=== PATIENT | male | born 1945 | race Two or more races ===

== ENCOUNTER 2017-07-28 11:42 | Inpatient (IN) | payer BC, MEDICARE ==
[~2017-07-28] VITALS: Ht 180.3 cm; Wt 84.8 kg
[2017-07-28] VITALS (20 sets, daily range): BP systolic 53–185; BP diastolic 41–103
--- NOTE | 2017-07-28 11:42 | NUR ---
BIBRA FROM SNF DT ALTERED MENTAL STATUS AND RESPIRATORY DISTRESS. PATIENT REFEIVED IN DISTRESS, SATING 80% ON NON REBREATHER, NOTED TACHY ON TELE MONITOR, NON RESPONSIVE. MD PFEIFFER AT BEDSIDE FOR EVAL
--- NOTE | 2017-07-28 11:47 | NUR ---
INTUBATED BY MD PFEIFFER - 7.5F, 25 CM AT THE LIP. RT CONNECTED PT TO VENT
[2017-07-28] MEDS ORDERED: PROPOFOL 100 ML IV PRN (12:00)
[2017-07-28] MEDS ORDERED: IV NS 0.9% 1,000 ML BAG IV ONE ×2 (12:00→13:00)
[2017-07-28] MEDS ORDERED: ETOMIDATE 2 MG/ML VIAL IV ONE (12:00)
[2017-07-28] MEDS ORDERED: SUCCINYLCHOLINE CHLORIDE 20 MG/ML VIAL IV ONE (12:00)
--- NOTE | 2017-07-28 12:00 | NUR ---
RT INTUBATED PT WITH 7.5 ETT AT 24CM GUM LINE BILATERAL CHEST RISE CO2 COLOR CHANGE. VENT SETTING ORDERED PER DR MORA AC 550 16 +5 100% O2. ABG DRAW AFTER AN HOUR Addendum: 07/28/17 at 1259 by CHAYA KRAMER RT Amended: Links added.
--- NOTE | 2017-07-28 12:08 | NUR ---
TEST DEVELOPMENT ENGINEER AT BS
[2017-07-28] MEDS ORDERED: FENTANYL PF 100MCG/2ML AMPUL ONE (12:20)
[2017-07-28] MEDS ORDERED: INSU100I14 SQ (12:22)
[2017-07-28] MEDS ORDERED: LACO200T2 PO (12:22)
[2017-07-28] MEDS ORDERED: ENOX40DI SQ (12:22)
[2017-07-28] MEDS ORDERED: DOCU-141 PO (12:22)
[2017-07-28] MEDS ORDERED: NYST50002 PO (12:22)
[2017-07-28] MEDS ORDERED: PHEN125O9 PO (12:22)
[2017-07-28] MEDS ORDERED: ZINC220T PO (12:22)
[2017-07-28] MEDS ORDERED: MULT-213 PO (12:22)
[2017-07-28] MEDS ORDERED: PROP60TA18 PO (12:22)
[2017-07-28] MEDS ORDERED: FURO-144 PO (12:22)
[2017-07-28] MEDS ORDERED: LEVE1000 PO (12:22)
[2017-07-28] MEDS ORDERED: SENN8.8S11 GT (12:22)
[2017-07-28] MEDS ORDERED: FENTANYL CITRATE IV 1,250 MCG in IV NS 0.9% 250ML IV PRN (12:30)
[2017-07-28 12:31] LABS: BASOPHILS # (AUTO) 0.2 /CMM (0.0-0.2); BASOPHILS % (AUTO) 1.5 % (0.0-2.0); EOSINOPHILS % (AUTO) 0.3 % (0.0-6.0); HEMATOCRIT 37 % (39-51); HEMOGLOBIN 12.6 g/dL (13.5-17.5); LYMPHOCYTES # (AUTO) 1.1 /CMM (0.8-4.8); LYMPHOCYTES % (AUTO) 7.4 % (20.0-44.0); MEAN CORPUSCULAR HEMOGLOBIN 32 PG (26.0-33.0); MEAN CORPUSCULAR HGB CONC 34 g/dl (31.0-36.0); MEAN CORPUSCULAR VOLUME 93 fL (80-96); MONOCYTES # (AUTO) 0.8 /CMM (0.1-1.30); MONOCYTES % (AUTO) 5.5 % (2.0-12.0); NEUTROPHILS % (AUTO) 85.3 % (43.0-81.0); PLATELET COUNT (AUTO) 162 /CMM (150-450); RDW COEFFICIENT OF VARIATION 14.4 (11.5-15.0); RED BLOOD CELL COUNT(AUTO) 3.94 MIL/uL (4.5-6.0); WHITE BLOOD COUNT (AUTO) 15.1 K/uL (4.3-11.0)
[2017-07-28 12:32] LABS: APPEARANCE,URINE Slightly Cloudy (CLEAR); BILIRUBIN,URINE Negative (NEGATIVE); BLOOD, URINE Large Ery/uL (NEGATIVE); COLOR,URINE Orange (YELLOW); KETONES,URINE Negative (NEGATIVE); LEUKOCYTE ESTERASE ,URINE Negative (NEGATIVE); NITRITE, URINE Negative (NEGATIVE); PH,URINE 5.5 (5.0-8.0); PROTEIN,URINE 30 mg/dl (NEGATIVE); UGLUCOSE Negative (NEGATIVE); UROBILINOGEN,URINE 0.2 EU/dL (0.2)
[2017-07-28 12:42] LABS: BACTERIA,URINE Rare /HPF (None Seen); RBC,URINE 51-80 /HPF (0-2); SQUAMOUS EPITHELIAL CELL,UR Few /HPF (None Seen); WBC,URINE 0-2 /HPF (0-3)
[2017-07-28 12:43] LABS: YEAST,URINE Few /HPF (None Seen)
[2017-07-28 12:45] LABS: INR 1.06 (0.87-1.13)
[2017-07-28 12:46] LABS: ALANINE AMINOTRANSFERASE 69 U/L (12-78); ALBUMIN 2.5 g/dL (3.4-5.0); ALKALINE PHOSPHATASE 128 U/L (46-116); ASPARTATE AMINOTRANSFERASE 33 U/L (15-37); BILIRUBIN,DIRECT 0.2 mg/dL (0.0-0.2); BILIRUBIN,TOTAL 0.6 mg/dL (0.2-1.0); CALCIUM, SERUM 8.8 mg/dL (8.5-10.1); CARBON DIOXIDE 20 mmol/L (21-32); CHLORIDE 103 mmol/L (98-107); GLUCOSE 140 mg/dL (74-106); SODIUM SERUM 137 mmol/L (136-145); TOTAL PROTEIN, SERUM 6.4 g/dL (6.4-8.2)
[2017-07-28 12:47] LABS: TROPONIN I < 0.017 ng/mL (0.00-0.056)
[2017-07-28 12:50] LABS: CREATININE 8.3 mg/dL (0.6-1.3); POTASSIUM 6.6 mmol/L (3.5-5.1); UREA NITROGEN, BLOOD 88 mg/dL (7-18)
[2017-07-28] MEDS ORDERED: MIDAZOLAM HCL 100 MG in IV NS 0.9% 80 ML IV PRN ×4 (13:00)
--- NOTE | 2017-07-28 13:19 | NUR ---
ICU 250
[2017-07-28] MEDS ORDERED: FENTANYL PF 100MCG/2ML AMPUL IV ONE (13:30)
--- NOTE | 2017-07-28 13:43 | NUR ---
DISCONTINUED PROPOFOL
--- NOTE | 2017-07-28 13:43 | NUR ---
abg done after 1 hr on 40% 02 VENT CHANGES TO AC 600 18R 50% 02 +[address] MORA Addendum: 07/28/17 at 1345 by CHAYA KRAMER RT Amended: Links added.
[2017-07-28 13:53] LABS: ABG BASE EXCESS -7.1 mmol/L; ABG OXYGEN SATURATION 94.3 % (92.0-98.5); ABG PCO2 55.6 mmHg (35.0-45.0); ABG PH 7.203 (7.350-7.450); ABG PO2 87.6 mmHg (75.0-100.0); AaDO2 133.7 mmHg; COHb 0.4 % (0.5-1.5); MetHb 0.7 % (0.0-1.5); O2Hb 93.3 % (94.0-97.0); PEEP,BG 5 cm H2O; SITE, ABG Right Radial; VENT MODE, BG AC 40%; VT, ABG 550 mL
[2017-07-28] MEDS ORDERED: Calcium Gluconate 1GM/10ML 9.3 MEQ in IV D5W 250 ML IV ONE (14:00)
[2017-07-28] MEDS ORDERED: PIPERACILLIN /TAZOBACTAM 3.375 G in IV D5W 50 ML IV STA (14:01)
[2017-07-28] MEDS ORDERED: PIPERACILLIN /TAZOBACTAM 3.375 G VIAL IV ONE (14:07)
[2017-07-28] MEDS ORDERED: NORMAL SALINE FLUSH 10 ML SYR IV PRN (14:30)
[2017-07-28] MEDS ORDERED: ACETAMINOPHEN 650 MG/SUPP.RECT RC PRN (14:30)
[2017-07-28] MEDS ORDERED: NORMAL SALINE FLUSH 10 ML SYR IV SCH (14:30)
[2017-07-28] MEDS ORDERED: ONDANSETRON HCL/PF 4 MG/2 ML VIAL IVP PRN (14:30)
[2017-07-28 14:31] LABS: CALCIUM, SERUM 9.2 mg/dL (8.5-10.1); CARBON DIOXIDE 23 mmol/L (21-32); CHLORIDE 103 mmol/L (98-107); GLUCOSE 147 mg/dL (74-106); POTASSIUM 5.9 mmol/L (3.5-5.1); SODIUM SERUM 139 mmol/L (136-145)
[2017-07-28 14:33] LABS: CREATININE 7.6 mg/dL (0.6-1.3); UREA NITROGEN, BLOOD 89 mg/dL (7-18)
--- NOTE | 2017-07-28 15:08 | NUR ---
PATIENT TRANSPORTED TO ICU. VSS
[2017-07-28] MEDS: PANTOPRAZOLE 40 MG VIAL IV SCH (15:44)
[2017-07-28] MEDS: LEVETIRACETAM (500MG) 500 MG in IV NS 0.9% 100 ML IV SCH (15:45)
[2017-07-28] MEDS ORDERED: [UNRECOGNIZED DRUG - OTHER] PO SCH (17:00)
[2017-07-28] MEDS: PROPRANOLOL HCL 10 MG TABLET PO SCH (17:15)
[2017-07-28] MEDS: DEXAMETHASONE SOD PHOSPHATE 4 MG/ML VIAL IV SCH (17:15)
--- NOTE | 2017-07-28 17:28 | NUR ---
SLASHER TENDER HELPER. ADMISSION. RECEIVED THE PT FROM ER VIA [facility] ROOM 250. ADMITTING DIAGNOSIS IS RESPIRATORY FAILURE . ORALLY INTUBATED. VERSED DRIP STARTED FROM ER. IV LT AC 20G. RT HAND AC 18G. INFILTRATED. . FROM ER. ETT 7.5,LIP 25,AC 18,TV 600,FIO2 50%PEEP 5. SAT 98%. NO ACUTE DISTRESS NOTED. RETAIL PRESENTATION SPECIALIST SHOWING NSR. RT NARE NGT INTACT. CLAMPED NPO. EXPECTS MEDS. DEX SOFT WRIST RESTRAINT CHECKED AND RELEASED NO INJURY OR REDNESS NOTED.FC PATENT, URINE DRAINING, WILL CONTINUE TO MONITOR VITALS.
[2017-07-28] MEDS: PHENYTOIN SUSP UDC 100 MG/4 ML UDC PO SCH ×2 (18:36→21:02)
[2017-07-28] MEDS: IPRATROPIUM NEB FS 0.5 MG/2.5 ML AMPUL.NEB NEB SCH ×2 (19:30→21:04)
--- NOTE | 2017-07-28 20:00 | NUR ---
HAND PACKER/PACKAGER - NOTES - RECEIVED THE PT ORALLY INTUBATED. VERSED DRIP 2 MG/HR. IV LT AC 20G. ETT 7.5, 25 @ LIP, AC 18,TV 600, FIO2 50%, PEEP 5. SAT 99%. NO ACUTE DISTRESS NOTED. BARK SKINNER SHOWING NSR. RT NARE NGT INTACT. CLAMPED NPO. EXPECTS MEDS. DEX SOFT WRIST RESTRAINT CHECKED AND RELEASED NO INJURY OR REDNESS NOTED. FC PATENT, URINE DRAINING, WILL CONTINUE TO MONITOR VITALS.
[2017-07-28] MEDS: NYSTATIN (PYXIS) 500,000 UNIT/5 ML ORAL.SUSP PO SCH (21:02)
[2017-07-28] MEDS: ALBUTEROL HALF STRENGTH 1.25 MG/3 ML VIAL.NEB NEB SCH (21:04)
[2017-07-28] MEDS ORDERED: IV NS 0.9% 250 ML IV PRN (21:30)
--- NOTE | 2017-07-28 22:00 | NUR ---
PT RECEIVED ON VENT VIA CHARTED SETTINGS AND ROUTE. TOLERATING VENT SETTINGS. AMBU BAG AT BEDSIDE, ALARMS SET AND AUDIBLE. VENT PLUGGED INTO RED OUTLET. NO RESP DISTRESS NOTED. WILL CONTINUE TO MONITOR Addendum: 07/28/17 at 2200 by IVETTE GAGE RT Amended: Links added.
[2017-07-29] VITALS (62 sets, daily range): BP systolic 71–208; BP diastolic 42–91
[2017-07-29] MEDS: IPRATROPIUM NEB FS 0.5 MG/2.5 ML AMPUL.NEB NEB SCH ×7 (00:15→23:17)
[2017-07-29] MEDS: ALBUTEROL HALF STRENGTH 1.25 MG/3 ML VIAL.NEB NEB SCH ×7 (00:15→23:17)
[2017-07-29] MEDS: LEVETIRACETAM (500MG) 500 MG in IV NS 0.9% 100 ML IV SCH ×2 (02:36→15:20)
[2017-07-29] MEDS: PHENYTOIN SUSP UDC 100 MG/4 ML UDC PO SCH ×3 (04:35→21:25)
[2017-07-29 05:33] LABS: BASOPHILS % (AUTO) 0.1 % (0.0-2.0); EOSINOPHILS % (AUTO) 0.2 % (0.0-6.0); HEMATOCRIT 33 % (39-51); HEMOGLOBIN 11.7 g/dL (13.5-17.5); LYMPHOCYTES # (AUTO) 0.9 /CMM (0.8-4.8); LYMPHOCYTES % (AUTO) 7.7 % (20.0-44.0); MEAN CORPUSCULAR HEMOGLOBIN 33 PG (26.0-33.0); MEAN CORPUSCULAR HGB CONC 36 g/dl (31.0-36.0); MEAN CORPUSCULAR VOLUME 92 fL (80-96); MONOCYTES # (AUTO) 0.6 /CMM (0.1-1.30); MONOCYTES % (AUTO) 4.5 % (2.0-12.0); NEUTROPHILS # (AUTO) 10.7 /CMM (1.8-8.9); NEUTROPHILS % (AUTO) 87.5 % (43.0-81.0); PLATELET COUNT (AUTO) 107 /CMM (150-450); RDW COEFFICIENT OF VARIATION 14.3 (11.5-15.0); RED BLOOD CELL COUNT(AUTO) 3.55 MIL/uL (4.5-6.0); WHITE BLOOD COUNT (AUTO) 12.2 K/uL (4.3-11.0)
[2017-07-29 06:01] LABS: INR 1.07 (0.87-1.13); PROTHROMBIN TIME 11.1 SECS (9.5-12.7)
[2017-07-29 06:06] LABS: ALANINE AMINOTRANSFERASE 57 U/L (12-78); ALBUMIN 2.3 g/dL (3.4-5.0); ALKALINE PHOSPHATASE 121 U/L (46-116); ASPARTATE AMINOTRANSFERASE 22 U/L (15-37); BILIRUBIN,TOTAL 1.3 mg/dL (0.2-1.0); CALCIUM, SERUM 9.2 mg/dL (8.5-10.1); CARBON DIOXIDE 25 mmol/L (21-32); CHLORIDE 111 mmol/L (98-107); CREATININE 3.6 mg/dL (0.6-1.3); GLUCOSE 120 mg/dL (74-106); MAGNESIUM 2.3 mg/dL (1.8-2.4); PHOSPHORUS 6.1 mg/dL (2.5-4.9); POTASSIUM 4.5 mmol/L (3.5-5.1); SODIUM SERUM 150 mmol/L (136-145); TOTAL PROTEIN, SERUM 6.1 g/dL (6.4-8.2); UREA NITROGEN, BLOOD 73 mg/dL (7-18)
--- NOTE | 2017-07-29 07:36 | NUR ---
OPERATIONS LOGISTICS ANALYST RECEIVED PATIENT FROM THE PREVIOUS SHIFT. PATIENT IS IN BED. SEDATED ON VERSED DRIP. NO ACUTE DISTRESS NOTED. VENT SETTINGS REVIEWED AND VERIFIED. AFEBRILE. STABLE VITAL SINGS. TURNED AND REPOSITIONED FOR COMFORT AND WOUND PREVENTION. WILL CONTINUE TO MONITOR AND PROVIDE CARE.
--- NOTE | 2017-07-29 08:17 | NUR ---
CROWN AND BRIDGE DENTAL LAB TECHNICIAN DURING SEDATION VACATION, RN HELD THE VERSED DRIP. PATIENT NOTED TO WAKE UP. PATIENT IS ABLE TO FOLLOW COMMANDS. ABLE TO INTERACT. PATIENT WAS RESTARTED ON VERSED DRIP FOR COMFORT AND DUE TO TACHYPNEA.
[2017-07-29] MEDS ORDERED: SENNOSIDES 8.8 MG/5 ML UDC GT SCH (09:00)
[2017-07-29] MEDS ORDERED: DC PROPOFOL WHEN EXTUBATED XX PRN ×2 (09:00→10:00)
--- NOTE | 2017-07-29 09:04 | NUR ---
RT NOTE PT PLACED ON SIMV MODE PER MD ORDER. SETTINGS PRESCRIBED SIMV RR 4 PEEP 5 PSV 15. PT AWAKE AND ALERT. NO DISTRESS NOTED. RN NOTIFIED. Addendum: 07/29/17 at 0906 by LENIN MACEDO RT Amended: Links added.
[2017-07-29] MEDS: DEXAMETHASONE SOD PHOSPHATE 4 MG/ML VIAL IV SCH ×2 (09:12→17:30)
[2017-07-29] MEDS: PANTOPRAZOLE 40 MG VIAL IV SCH (09:12)
[2017-07-29] MEDS: ZINC SULFATE 220 MG CAPSULE PO SCH (09:12)
[2017-07-29] MEDS: NYSTATIN (PYXIS) 500,000 UNIT/5 ML ORAL.SUSP PO SCH ×4 (09:12→21:24)
[2017-07-29] MEDS: IV 1/2NS 1000 ML 1,000 ML IV PRN ×3 (09:15→17:22)
--- NOTE | 2017-07-29 09:45 | NUR ---
FIELD AUTOMOBILE ADJUSTER DUE TO HIGH RISK FOR FAILURE AND HEMODYNAMIC INSTABILITY RECEIVED ADJUNCT MATHEMATICS INSTRUCTOR RECOMMENDATIONS TO NOT TO DO SEDATION VACATION AT THIS TIME.
[2017-07-29 09:56] LABS: ABG BASE EXCESS -1.6 mmol/L; ABG PCO2 42.6 mmHg (35.0-45.0); ABG PH 7.365 (7.350-7.450); ABG PO2 132.6 mmHg (75.0-100.0); COHb 0.3 % (0.5-1.5); MetHb 0.3 % (0.0-1.5); O2Hb 96.9 % (94.0-97.0); PEEP,BG 5 cm H2O; SITE, ABG Right Radial; VENT MODE, BG SIMV 4 +5 PSV 15; VT, ABG 600 mL
--- NOTE | 2017-07-29 10:05 | NUR ---
TOOL HONING MACHINE SET UP OPERATOR PATIENT WAS SEEN AND EXAMINED BY GEOPHYSICS PROFESSOR. PATIENT EXTUBATED THE PATIENT PER GEOPHYSICS PROFESSOR ORDER. PATIENT NOTED TO BE TACHYPNEIC. CLOSELY BEING MONITORED.
--- NOTE | 2017-07-29 10:25 | NUR ---
RT NOTE PT EXTUBATED PER MD ORDER. RN AT BED SIDE. PT AWAKE AND RESPONSIVE. PT PLACED ON NRB MASK AT 15L. MODERATE AMOUNT OF CLEAR/BLOOD TINGED SECRETIONS SUCTIONED ORALLY. NO DISTRESS NOTED AT MOMENT. WILL CONTINUE TO MONITOR. Addendum: 07/29/17 at 1027 by LENIN MACEDO RT Amended: Links added.
--- NOTE | 2017-07-29 10:27 | NUR ---
CARE SPECIALIST PATIENT WAS PLACED ON NON REBREATHER MASK. PATIENT NOTE TO BE TACHYPNEIC. ALERT AND ORIENTED. SHORTNESS OF BREATH NOTED. SEEN BY AIR CONDITIONING SUPERVISOR AGAIN. BLOOD GAS TO BE DONE IN AN HOUR.
[2017-07-29] MEDS: PROPRANOLOL HCL 10 MG TABLET PO SCH ×3 (10:39→17:32)
[2017-07-29] MEDS: SENNOSIDES 8.6 MG TABLET PO SCH (10:41)
[2017-07-29] MEDS ORDERED: LACOSAMIDE 50 MG TABLET PO SCH (11:00)
--- NOTE | 2017-07-29 12:01 | NUR ---
PRINTING SIGN MACHINE OPERATOR PATIENT REINTUBATED PER GOLF CLUB ASSEMBLER ORDER. POST CXR DONE. NO DISTRESS. RESEDATED ON VERSED. FAMILY AWARE. FAMILY AT BEDSIDE.
[2017-07-29 13:29] LABS: ABG BASE EXCESS 0.1 mmol/L; ABG PH 7.311 (7.350-7.450); COHb 0.3 % (0.5-1.5); MetHb 0.8 % (0.0-1.5); O2Hb 97.9 % (94.0-97.0); PEEP,BG 5 cm H2O; SITE, ABG Right Radial; VENT MODE, BG AC 18 600 100% +5; VT, ABG 600 mL
[2017-07-29] MEDS ORDERED: ROCURONIUM BROMIDE 50 MG/5 ML IV ONE (13:36)
[2017-07-29] MEDS ORDERED: hydrALAZINE HCL IV 20 MG VIAL IV PRN (14:00)
[2017-07-29] MEDS: LACOSAMIDE 50 MG TABLET PO SCH ×2 (14:19→23:23)
[2017-07-29] MEDS ORDERED: MIDAZOLAM HCL 100 MG in IV NS 0.9% 80 ML IV PRN (16:30)
[2017-07-29] MEDS: PIPERACILLIN /TAZOBACTAM 2.25 G in IV D5W 50 ML IV SCH ×2 (17:34→23:23)
--- NOTE | 2017-07-29 17:51 | NUR ---
RT NOTE PT REMAINS INTUBATED VIA 7.0 ETT 24 CM AT LIP. SETTINGS PRESCRIBED. ALARMS SET PER PROTOCOL AND AUDIBLE. VENT PLUGGED IN TO RED OUTLET. AMBU BAG AT BED SIDE. NO DISTRESS NOTED. Addendum: 07/29/17 at 1752 by LENIN MACEDO RT Amended: Links added.
[2017-07-29 18:33] LABS: ABG BASE EXCESS -1.2 mmol/L; ABG OXYGEN SATURATION 95.8 % (92.0-98.5); ABG PCO2 72.1 mmHg (35.0-45.0); ABG PH 7.211 (7.350-7.450); AaDO2 389.7 mmHg; COHb 0.3 % (0.5-1.5); MetHb 1.1 % (0.0-1.5); O2Hb 94.5 % (94.0-97.0); SITE, ABG Right Radial; VENT MODE, BG NRB
--- NOTE | 2017-07-29 20:21 | NUR ---
PT RECEIVED INTUBATED 7.5 ETT SECURED AT 24CM AT THE LIP. PT TOLERATING VENT SETTINGS. SX'D FRO SML AMT OF THICK TINGED SECRETIONS. VENT ALARMS SET AND AUDIBLE. AMBU BAG AT [facility]. VENT PLUGGED INTO RED OUTLET. WILL CONTINUE TO MONITOR. Addendum: 07/29/17 at 2022 by LAURY JOSEPH RT Amended: Links added.
[2017-07-30] VITALS (54 sets, daily range): BP systolic 96–151; BP diastolic 37–93
[2017-07-30] MEDS: LEVETIRACETAM (500MG) 500 MG in IV NS 0.9% 100 ML IV SCH ×2 (02:16→16:56)
[2017-07-30] MEDS: ALBUTEROL HALF STRENGTH 1.25 MG/3 ML VIAL.NEB NEB SCH ×5 (03:03→23:15)
[2017-07-30] MEDS: IPRATROPIUM NEB FS 0.5 MG/2.5 ML AMPUL.NEB NEB SCH ×6 (03:03→23:15)
[2017-07-30] MEDS: PHENYTOIN SUSP UDC 100 MG/4 ML UDC PO SCH ×3 (04:11→21:27)
[2017-07-30 05:20] LABS: BASOPHILS % (AUTO) 0.2 % (0.0-2.0); EOSINOPHILS # (AUTO) 0.1 /CMM (0.0-0.7); EOSINOPHILS % (AUTO) 0.4 % (0.0-6.0); HEMATOCRIT 34 % (39-51); HEMOGLOBIN 11.8 g/dL (13.5-17.5); LYMPHOCYTES # (AUTO) 0.9 /CMM (0.8-4.8); LYMPHOCYTES % (AUTO) 6.6 % (20.0-44.0); MEAN CORPUSCULAR HEMOGLOBIN 33 PG (26.0-33.0); MEAN CORPUSCULAR HGB CONC 35 g/dl (31.0-36.0); MEAN CORPUSCULAR VOLUME 96 fL (80-96); MONOCYTES # (AUTO) 0.3 /CMM (0.1-1.30); NEUTROPHILS # (AUTO) 11.9 /CMM (1.8-8.9); NEUTROPHILS % (AUTO) 90.8 % (43.0-81.0); PLATELET COUNT (AUTO) 73 /CMM (150-450); RDW COEFFICIENT OF VARIATION 15.5 (11.5-15.0); RED BLOOD CELL COUNT(AUTO) 3.58 MIL/uL (4.5-6.0); WHITE BLOOD COUNT (AUTO) 13.1 K/uL (4.3-11.0)
[2017-07-30 05:22] LABS: CALCIUM, SERUM 9.2 mg/dL (8.5-10.1); CARBON DIOXIDE 23 mmol/L (21-32); CHLORIDE 112 mmol/L (98-107); CREATININE 2.2 mg/dL (0.6-1.3); GLUCOSE 89 mg/dL (74-106); MAGNESIUM 2.3 mg/dL (1.8-2.4); PHOSPHORUS 4.4 mg/dL (2.5-4.9); POTASSIUM 4.7 mmol/L (3.5-5.1); SODIUM SERUM 146 mmol/L (136-145); UREA NITROGEN, BLOOD 58 mg/dL (7-18)
[2017-07-30] MEDS: IV 1/2NS 1000 ML 1,000 ML IV PRN ×2 (05:34→18:51)
[2017-07-30] MEDS: PIPERACILLIN /TAZOBACTAM 2.25 G in IV D5W 50 ML IV SCH ×4 (05:45→23:22)
[2017-07-30 06:03] LABS: BAND % (MANUAL) 15 % (0.0-5.0); LYMPHOCYTES % (MANUAL) 10 % (16-48); METAMYELOCYTES % 2 % (0-0); MONOCYTES % (MANUAL) 3 % (0-11.0); NEUTROPHILS % (MANUAL) 70 (42-76)
--- NOTE | 2017-07-30 07:46 | NUR ---
RT PATIENT REC'D ORALLY INTUBATED WITH A 7.5 ETT SECURED AT 24CM MID LIP VIA ANCHOR FAST. ON [facility] VENT WITH SETTINGS SET BY MD AMELIE INTERIANO. VENT ALARMS CHECKED + AUDIBLE. CUFF PRESSURE CHECKED MANAGER MEDICAL AFFAIRS. SX'D WITH SMALL AMT PALE SEMITHICK SECRETIONS. B/S DIMINISHED. AMBU BAG AT [facility]. CONT CURRENT PLAN OF RESP CARE. Addendum: 07/30/17 at 1143 by YAMILETH ORELLANA RT Amended: Links added.
--- NOTE | 2017-07-30 08:00 | NUR ---
NET UI DEVELOPER RECEIVED PT SEDATED ON VERSED DRIP. ETT INTACT CONNECTED TO VENT. NGT CLAMPED, POSITION VERIFIED BY AUSCULTATION. TEMP PROBE IN PLACE. PT FEBRILE. WILL GIVE TYLENOL. NO SEIZURES SEEN.
[2017-07-30 08:38] LABS: ABG BASE EXCESS -1.6 mmol/L; ABG OXYGEN SATURATION 92.8 % (92.0-98.5); ABG PCO2 44.5 mmHg (35.0-45.0); ABG PH 7.349 (7.350-7.450); ABG PO2 66.4 mmHg (75.0-100.0); AaDO2 167.6 mmHg; COHb 0.2 % (0.5-1.5); MetHb 0.8 % (0.0-1.5); O2Hb 91.9 % (94.0-97.0); SITE, ABG Left Radial
[2017-07-30] MEDS ORDERED: PHENYTOIN SODIUM IV STA (08:40)
[2017-07-30] MEDS ORDERED: NS 0.9% IV STA (08:40)
[2017-07-30] MEDS: NYSTATIN (PYXIS) 500,000 UNIT/5 ML ORAL.SUSP PO SCH ×4 (09:12→21:27)
[2017-07-30] MEDS: ZINC SULFATE 220 MG CAPSULE PO SCH (09:12)
[2017-07-30] MEDS: PANTOPRAZOLE 40 MG VIAL IV SCH ×2 (09:12→09:14)
[2017-07-30] MEDS: DEXAMETHASONE SOD PHOSPHATE 4 MG/ML VIAL IV SCH ×2 (09:12→16:56)
[2017-07-30] MEDS: SENNOSIDES 8.6 MG TABLET PO SCH (09:12)
[2017-07-30] MEDS: LACOSAMIDE 50 MG TABLET PO SCH ×2 (09:13→21:27)
[2017-07-30] MEDS: PROPRANOLOL HCL 10 MG TABLET PO SCH ×3 (09:38→16:56)
--- NOTE | 2017-07-30 10:00 | NUR ---
SATELLITE SPECIALIST SPO2 CONSISTENTLY 100% ON CURRENT VENT SETTINGS. SUCTIONED.
[2017-07-30] MEDS ORDERED: LORAZEPAM INJ 2 MG/ML VIAL ONE (10:10)
[2017-07-30] MEDS ORDERED: ACETAMINOPHEN 650 MG/20.3 ML UDC NG ONE ×2 (13:30)
[2017-07-30] MEDS ORDERED: ACETAMINOPHEN 650 MG/20.3 ML UDC NG PRN (13:30)
--- NOTE | 2017-07-30 20:19 | NUR ---
received pt from day shift, lethargic/obtunded, off of versed since 1800, does not follow commands, responds to pain stimuli only, does not open eyes, SB, on the vent, lungs congested, no edema, OG clamped, f/c OK output, restraints on, v/s stable, no pain, pt turned and repositioned, friends at the bedside.
--- NOTE | 2017-07-30 21:10 | NUR ---
phenytoin level 22.2 DR Marinelli called, dose reduced to 100mg.
[2017-07-30] MEDS ORDERED: PHENYTOIN SUSP UDC 100 MG/4 ML UDC ONE (21:19)
--- NOTE | 2017-07-30 21:33 | NUR ---
PT RECEIVED INTUBATED 7.5 ETT SECURED AT 24CM AT THE LIP. PT TOLERATING VENT SETTINGS. SX'D FOR SML AMT OF THICK TINGED/YELLOW SECRETIONS. VENT ALARMS SET AND AUDIBLE. AMBU BAG AT [facility]. VENT PLUGGED INTO RED OUTLET. WILL CONTINUE TO MONITOR. Addendum: 07/30/17 at 2134 by LAURY JOSEPH RT Amended: Links added.
[2017-07-31] VITALS (77 sets, daily range): BP systolic 84–153; BP diastolic 36–68
--- NOTE | 2017-07-31 00:26 | NUR ---
pt is resting in the bed, obtunded/lethargic, SB, v/s stable, no pain, pt turned and repositioned q2hrs.
[2017-07-31] MEDS: LEVETIRACETAM (500MG) 500 MG in IV NS 0.9% 100 ML IV SCH ×2 (02:12→15:04)
[2017-07-31] MEDS: ALBUTEROL HALF STRENGTH 1.25 MG/3 ML VIAL.NEB NEB SCH ×6 (03:09→23:18)
[2017-07-31] MEDS: IPRATROPIUM NEB FS 0.5 MG/2.5 ML AMPUL.NEB NEB SCH ×6 (03:09→23:18)
[2017-07-31] MEDS ORDERED: PHENYTOIN SUSP UDC 100 MG/4 ML UDC ONE (04:17)
[2017-07-31] MEDS: PHENYTOIN SUSP UDC 100 MG/4 ML UDC PO SCH ×4 (04:21→23:04)
--- NOTE | 2017-07-31 04:29 | NUR ---
pt is resting in the bed, no acute distress overnight, obtunded/lethargic, SB, v/s stable, no pain, pt cleaned, changed and repositioned q2hrs.
[2017-07-31] MEDS ORDERED: PHENYTOIN SUSP UDC 100 MG/4 ML UDC PO SCH (05:00)
[2017-07-31] MEDS: PIPERACILLIN /TAZOBACTAM 2.25 G in IV D5W 50 ML IV SCH ×4 (05:24→23:06)
[2017-07-31 05:35] LABS: BASOPHILS % (AUTO) 0.1 % (0.0-2.0); EOSINOPHILS % (AUTO) 0.1 % (0.0-6.0); HEMATOCRIT 27 % (39-51); HEMOGLOBIN 8.9 g/dL (13.5-17.5); LYMPHOCYTES # (AUTO) 0.5 /CMM (0.8-4.8); LYMPHOCYTES % (AUTO) 5.1 % (20.0-44.0); MEAN CORPUSCULAR HEMOGLOBIN 31 PG (26.0-33.0); MEAN CORPUSCULAR HGB CONC 33 g/dl (31.0-36.0); MEAN CORPUSCULAR VOLUME 94 fL (80-96); MONOCYTES # (AUTO) 0.2 /CMM (0.1-1.30); MONOCYTES % (AUTO) 1.9 % (2.0-12.0); NEUTROPHILS # (AUTO) 9.3 /CMM (1.8-8.9); NEUTROPHILS % (AUTO) 92.8 % (43.0-81.0); PLATELET COUNT (AUTO) 73 /CMM (150-450); RDW COEFFICIENT OF VARIATION 14.6 (11.5-15.0); RED BLOOD CELL COUNT(AUTO) 2.86 MIL/uL (4.5-6.0)
[2017-07-31 05:36] LABS: CALCIUM, SERUM 8.9 mg/dL (8.5-10.1); CARBON DIOXIDE 24 mmol/L (21-32); CHLORIDE 109 mmol/L (98-107); CREATININE 2.9 mg/dL (0.6-1.3); GLUCOSE 141 mg/dL (74-106); SODIUM SERUM 142 mmol/L (136-145)
[2017-07-31 05:45] LABS: UREA NITROGEN, BLOOD 82 mg/dL (7-18)
[2017-07-31 06:16] LABS: BAND % (MANUAL) 1 % (0.0-5.0); LYMPHOCYTES % (MANUAL) 7 % (16-48); MONOCYTES % (MANUAL) 3 % (0-11.0); NEUTROPHILS % (MANUAL) 89 (42-76)
[2017-07-31] MEDS ORDERED: PHARMACY TO CHANGE PO MEDS TO GT/NG XX PRN (07:30)
--- NOTE | 2017-07-31 07:30 | NUR ---
PATIENT SEEN ORALLY INTUBATED TO VENT SUPPORT. PATIENT DOESN'T NOT FOLLOW SIMPLE COMMANDS. NO EYE OPENING. ALL EXTREMITIES FLACCID. OFF SEDATION PER NOC RN SINCE 1700 YESTERDAY. BP STABLE. AFEBRILE .GOOD URINE OUTPUT.
[2017-07-31] MEDS: IV 1/2NS 1000 ML 1,000 ML IV PRN ×2 (07:42→18:44)
[2017-07-31] MEDS ORDERED: PROPRANOLOL HCL 10 MG TABLET GT SCH (08:04)
[2017-07-31] MEDS: NYSTATIN (PYXIS) 500,000 UNIT/5 ML ORAL.SUSP GT SCH ×4 (08:31→21:12)
[2017-07-31] MEDS: SENNOSIDES 8.6 MG TABLET GT SCH (08:31)
[2017-07-31] MEDS: ZINC SULFATE 220 MG CAPSULE GT SCH (08:32)
[2017-07-31] MEDS: DEXAMETHASONE SOD PHOSPHATE 4 MG/ML VIAL IV SCH ×2 (08:32→17:04)
[2017-07-31] MEDS: PANTOPRAZOLE 40 MG VIAL IV SCH (08:32)
[2017-07-31 08:36] LABS: ABG BASE EXCESS -3.3 mmol/L; ABG OXYGEN SATURATION 95.3 % (92.0-98.5); ABG PCO2 40.4 mmHg (35.0-45.0); ABG PH 7.353 (7.350-7.450); ABG PO2 86.4 mmHg (75.0-100.0); AaDO2 152.3 mmHg; COHb 0.3 % (0.5-1.5); MetHb 0.6 % (0.0-1.5); O2Hb 94.4 % (94.0-97.0); PEEP,BG 5 cm H2O; SITE, ABG Right Radial; VENT MODE, BG AC 18 600 40% +5; VT, ABG 600 mL
[2017-07-31] MEDS ORDERED: IV NS 0.9% 500 ML IV ONE (09:00)
--- NOTE | 2017-07-31 09:00 | NUR ---
PATIENT SEEN AND EXAMINED BY DR. GRIMM-PATIENT REMAINS UNAROUSABLE TO PAIN-MD ORDERED CT HEAD WITHOUT CONTRAST/EEG.
--- NOTE | 2017-07-31 09:30 | NUR ---
PATIENT GRIMACES TO SUCTIONING. STILL DOESN'T FOLLOW SIMPLE COMMANDS. + GAG/COUGH REFLEX.
--- NOTE | 2017-07-31 09:49 | NUR ---
RT NOTE PT RECEIVED MECHANICALLY VENTILATED VIA 7.5 ETT 24 CM AT LIP. SETTINGS PRESCRIBED AC 18 600 600 40% +5. BILATERAL CHEST RISE NOTED. ALARMS SET PER PROTOCOL AND AUDIBLE. VENT PLUGGED IN TO RED OUTLET. AMBU BAG AT BED SIDE. NO DISTRESS NOTED. WILL CONTINUE TO MONITOR. Addendum: 07/31/17 at 0952 by LENIN MACEDO RT Amended: Links added.
[2017-07-31] MEDS ORDERED: FUROSEMIDE 40 MG/4 ML VIAL IV ONE (10:00)
--- NOTE | 2017-07-31 10:00 | NUR ---
RENAL FOLLOW BY DR. ZAPATA-ROSA 40 MG IVP X 1 PER .
[2017-07-31] MEDS: LACOSAMIDE 50 MG TABLET GT SCH ×2 (10:02→21:12)
--- NOTE | 2017-07-31 11:30 | NUR ---
PATIENT SEEN AND EXAMINED BY DR. GOMES. PATIENT MOVING BUE AND NODDING HEAD TO .
--- NOTE | 2017-07-31 12:00 | NUR ---
STABLE ON CURRENT VENT SETTINGS. ABG NOTED BY DR. GOMES WITHOUT VENT CHANGES. DR. GRIMM MADE AWARE OF IMPROVED LOC-MD DISCONTINUED CT SCAN/EEG. BILATERAL WRIST RESTRAINTS REAPPLIED. PATIENT ATTEMPTS TO REACH FOR ETT.
--- NOTE | 2017-07-31 13:35 | NUR ---
POSITIVE FOR DVT ON RIGHT COMMON FEMORAL VEIN. DR. GOMES/DR. GRIMM NOTIFIED. FOR REFERRAL TO DR. HALL FOR IVC FILTER PLACEMENT. DR. HALL NOTIFIED BY DR. GOMES.
--- NOTE | 2017-07-31 13:55 | NUR ---
PATIENT'S DAUGHTER AT BEDSIDE-UPDATED WITH PATIENT STATUS AND PLAN OF CARE.
[2017-07-31] MEDS ORDERED: ANESTHESIA TRAY IN PYXIS 1 EA TRAY MC ONE (14:50)
--- NOTE | 2017-07-31 15:14 | NUR ---
DR. HALL CALLED-PATIENT FOR IVC FILTER PLACEMENT AT 1900. CONSENT FROM DAUGHTER OBTAINED.
[2017-07-31] MEDS ORDERED: LIDOCAINE 1% INJ 50 ML MDV IJ ONE (18:31)
[2017-07-31] MEDS ORDERED: IOHEXOL 50 ML IV ONE (18:31)
--- NOTE | 2017-07-31 18:45 | NUR ---
PATIENT TAKEN TO OR FOR IVC FILTER PLACEMENT.
--- NOTE | 2017-07-31 18:55 | NUR ---
PT RECEIVED INTUBATED 7.5 ETT SECURED AT 24CM AT THE LIP. PT TOLERATING VENT SETTINGS. SX'D FOR SML AMT OF THICK TINGED/YELLOW SECRETIONS. VENT ALARMS SET AND AUDIBLE. AMBU BAG AT [facility]. VENT PLUGGED INTO RED OUTLET. WILL CONTINUE TO MONITOR. Addendum: 07/31/17 at 1855 by MANNY VALDIVIA RT Amended: Links added.
--- NOTE | 2017-07-31 20:27 | NUR ---
received pt from OR, s/p IVC filter insertion s/t R femoral DVT, lethargic, response to pain stimuli only, SR, SB, on the vent, lungs congested, no edema, IVC insertion site observed, no bleeding noted, NPO, f/c OK output, restraints on, v/s stable, no pain, pt turned and repositioned, daughter at the bedside.
[2017-08-01] VITALS (64 sets, daily range): BP systolic 87–157; BP diastolic 45–84
--- NOTE | 2017-08-01 | NUR ---
pt is resting in the bed, lethargic, v/s stable, no pain, pt turned and repositioned q2hrs.
[2017-08-01] MEDS: IV 1/2NS 1000 ML 1,000 ML IV PRN ×2 (02:12→12:02)
[2017-08-01] MEDS: LEVETIRACETAM (500MG) 500 MG in IV NS 0.9% 100 ML IV SCH ×2 (02:35→16:03)
[2017-08-01] MEDS: ALBUTEROL HALF STRENGTH 1.25 MG/3 ML VIAL.NEB NEB SCH ×6 (02:54→22:48)
[2017-08-01] MEDS: IPRATROPIUM NEB FS 0.5 MG/2.5 ML AMPUL.NEB NEB SCH ×6 (02:54→22:48)
[2017-08-01] MEDS: PHENYTOIN SUSP UDC 100 MG/4 ML UDC PO SCH ×4 (04:03→23:19)
--- NOTE | 2017-08-01 04:43 | NUR ---
pt is resting in the bed, no acute distress overnight, v/s stable, no pain, pt cleaned, changed and repositioned q2hrs.
[2017-08-01] MEDS: PIPERACILLIN /TAZOBACTAM 2.25 G in IV D5W 50 ML IV SCH (05:12)
[2017-08-01 05:29] LABS: BASOPHILS % (AUTO) 0.1 % (0.0-2.0); EOSINOPHILS % (AUTO) 0.4 % (0.0-6.0); HEMATOCRIT 25 % (39-51); HEMOGLOBIN 8.9 g/dL (13.5-17.5); LYMPHOCYTES # (AUTO) 0.7 /CMM (0.8-4.8); LYMPHOCYTES % (AUTO) 7.7 % (20.0-44.0); MEAN CORPUSCULAR HEMOGLOBIN 33 PG (26.0-33.0); MEAN CORPUSCULAR HGB CONC 35 g/dl (31.0-36.0); MEAN CORPUSCULAR VOLUME 94 fL (80-96); MONOCYTES # (AUTO) 0.4 /CMM (0.1-1.30); MONOCYTES % (AUTO) 3.9 % (2.0-12.0); NEUTROPHILS # (AUTO) 8.2 /CMM (1.8-8.9); NEUTROPHILS % (AUTO) 87.9 % (43.0-81.0); PLATELET COUNT (AUTO) 85 /CMM (150-450); RDW COEFFICIENT OF VARIATION 14.4 (11.5-15.0); RED BLOOD CELL COUNT(AUTO) 2.69 MIL/uL (4.5-6.0); WHITE BLOOD COUNT (AUTO) 9.3 K/uL (4.3-11.0)
[2017-08-01 05:41] LABS: PHENYTOIN (DILANTIN) 15.5 ug/ml (10.0-20.0)
[2017-08-01 05:46] LABS: ALANINE AMINOTRANSFERASE 51 U/L (12-78); ALKALINE PHOSPHATASE 100 U/L (46-116); ASPARTATE AMINOTRANSFERASE 55 U/L (15-37); BILIRUBIN,TOTAL 0.9 mg/dL (0.2-1.0); CALCIUM, SERUM 8.4 mg/dL (8.5-10.1); CARBON DIOXIDE 25 mmol/L (21-32); CHLORIDE 110 mmol/L (98-107); CREATININE 1.6 mg/dL (0.6-1.3); GLUCOSE 109 mg/dL (74-106); POTASSIUM 3.3 mmol/L (3.5-5.1); SODIUM SERUM 143 mmol/L (136-145); UREA NITROGEN, BLOOD 59 mg/dL (7-18)
[2017-08-01 06:04] LABS: ALBUMIN 1.4 g/dL (3.4-5.0)
--- NOTE | 2017-08-01 07:45 | NUR ---
MANUFACTURING ENGINEERING INTERN: pt.is without sedation, was lethargic over night per report, on wrists restraints, can open eyes for seconds without tracking by touch, rest, SR/SB min 55, O2 sat. over 94%, BP WNL, still NPO, had IVC filter placement yesterday, H/H 8.04/21
[2017-08-01] MEDS: LACOSAMIDE 50 MG TABLET GT SCH ×2 (08:19→22:11)
[2017-08-01] MEDS: DEXAMETHASONE SOD PHOSPHATE 4 MG/ML VIAL IV SCH ×2 (08:19→16:12)
[2017-08-01] MEDS: PANTOPRAZOLE 40 MG VIAL IV SCH (08:19)
[2017-08-01] MEDS: NYSTATIN (PYXIS) 500,000 UNIT/5 ML ORAL.SUSP GT SCH ×4 (08:19→22:10)
[2017-08-01] MEDS: ZINC SULFATE 220 MG CAPSULE GT SCH (08:19)
[2017-08-01] MEDS: SENNOSIDES 8.6 MG TABLET GT SCH (08:19)
--- NOTE | 2017-08-01 08:40 | NUR ---
FREELANCE DESIGNER: pt.is more awake, weak, short eyes contact+, is in room, updated with pt.current condition, VS, plan: wean/SIMV at 10.30
--- NOTE | 2017-08-01 09:30 | NUR ---
pt placed on sivm per md order. rn aware. alarms adjusted. Addendum: 08/01/17 at 1022 by FRANKLIN WORTHINGTON RT Amended: Links added.
--- NOTE | 2017-08-01 09:37 | NUR ---
PHARMACY RETAIL SUPPORT SPECIALIST: is in room, updated with pt.current condition, neuro status, VS, I/O, IVF, NPO, K+ 3.3, plan for SIMV mode today, see new orders
--- NOTE | 2017-08-01 10:15 | NUR ---
PARIMUTUEL TICKET SELLER: O2 sat. 94-95%, RT is in room, switch pt. on AC mode back
--- NOTE | 2017-08-01 10:15 | NUR ---
PRODUCTION MACHINE OPERATOR: pt.is able to open eyes by touch, short eyes contact, still weak, can follow commands to squeeze fingers, but with very slow weak reaction, unable to follow commands properly equal, tachypneic RR 35-40, slightly laboring now with chest activity, SBP 157, SR, O2 sat. 94-095
[2017-08-01] MEDS ORDERED: POTASSIUM CHLORIDE 20 MEQ POWDER PACKET GT ONE (10:30)
--- NOTE | 2017-08-01 10:30 | NUR ---
PENCIL SORTER: Nidia, w/c RN& me evaluated pt., pt.has R.buttock 2x2 cm DTI, back site rausch, requests incident report needs to be done, see new orders
--- NOTE | 2017-08-01 10:31 | NUR ---
AREA OPERATIONS MANAGER: prev.note: R.buttock is error, L.buttock is corect
--- NOTE | 2017-08-01 10:40 | NUR ---
PT PLACED BACK ON A/C MODE DUE TO ELEVATED WOB. NURSING STAFF AWARE.
--- NOTE | 2017-08-01 10:50 | NUR ---
WOUND CARE CONSULT PATIENT SEEN AND SKIN INTEGRITY ASSESSMENT DONE. PLEASE SEE RESIDENTIAL APPRAISER ASSESSMENT IN PCS FOR TODAY. PATIENT PRESENTS WITH INTACT DTI TO THE RIGHT BUTTOCK AND RASHES TO HIS BACK. MD NOTIFIED AND ORDERS RECEIVED FOR TREATMENT FOR DTI. WILL DEFER RASH TO MD FOR EVALUATION. PATIENT WITH CURRENT UTE AT 10. CONTINUE TURNING Q 2 HOURS PATIENT CONDITION PERMITS, CONTINUE BILATERAL HEEL FLOATING AND USE OF Z GUARD FOR SKIN/MOISTURE MANAGEMENT. ALL SKIN MANAGEMENT DISCUSSED WITH NURSING AT THE BEDSIDE, MD IN AGREEMENT WITH PLAN OF CARE. Addendum: 08/01/17 at 1055 by SUE JONES WNDNU Amended: Links added. Addendum: 08/04/17 at 0709 by SUE JONES WNDNU CORRECTION TO ABOVE NOTE AND CONSULT THE DTI IS ON THE LEFT BUTTOCK NOT THE RIGHT.
[2017-08-01] MEDS ORDERED: Z GUARD REMEDY 2 OZ OINT TP PRN (11:00)
--- NOTE | 2017-08-01 11:20 | NUR ---
SODA DIALYZER: pt.daughter called/informed re pt.status, VS, orders, labs, POC
--- NOTE | 2017-08-01 12:00 | NUR ---
MUNICIPAL SERVICES MANAGER: updated by RT, no new order now
[2017-08-01] MEDS: PIPERACILLIN /TAZOBACTAM 3.375 G in IV D5W 50 ML IV SCH ×3 (12:04→23:31)
[2017-08-01] MEDS: Z GUARD REMEDY 2 OZ OINT TP SCH (12:10)
[2017-08-01] MEDS ORDERED: PROPOFOL 100 ML IV PRN (13:30)
[2017-08-01] MEDS: PROPOFOL 10MG/ML 50ML 50 ML IV PRN ×2 (15:15→20:02)
--- NOTE | 2017-08-01 15:15 | NUR ---
RADIOLOGY RN: pt.is restless now, RR 25-32, bitting ETT occas., on wrists restraints d/t uncontrolled strong arms activity, eyes contact+, grimacing, SBP 150, SR, will restart Diprivan, charge nurse spoke with before, Versed is d/lurdes, Diprivan order is active
--- NOTE | 2017-08-01 15:52 | NUR ---
TISSUE PACKER: called pharmacy to send up Yoni
--- NOTE | 2017-08-01 17:58 | NUR ---
PT REMAINS ON AC MODE WITH FAILED WEANING ATTEMPT THIS AFTERNOON WITH DR. GOMES AT BEDSIDE. ALARMS SET AND AUDIBLE MOD. SPUTUM ZERO DISTRESS ON AC MODE. Addendum: 08/01/17 at 1801 by FRANKLIN WORTHINGTON RT Amended: Links added.
--- NOTE | 2017-08-01 18:09 | NUR ---
CLIENT EXECUTIVE: pt.is sedated well with 15 mcg/kg/min Diprivan gtt, rest now, RR 18-22, reactive by touch, SR, SBP over 100, O2sat. over 94%, PM/skin/Wound care is done, incident report re DTI is done via website
--- NOTE | 2017-08-01 19:38 | NUR ---
PT RECEIVED INTUBATED 7.5 ETT SECURED AT 24CM AT THE LIP. PT TOLERATING VENT SETTINGS. SX'D FOR SML AMT OF THICK TINGED/YELLOW SECRETIONS. VENT ALARMS SET AND AUDIBLE. AMBU BAG AT [facility]. VENT PLUGGED INTO RED OUTLET. WILL CONTINUE TO MONITOR. Addendum: 08/01/17 at 1939 by MANNY VALDIVIA RT Amended: Links added.
--- NOTE | 2017-08-01 20:38 | NUR ---
curriculum supervisor. initial assessment. received the pt rest on the bed. orally intubated. ett7.5cm,lip 24cm,ac 18,tv 600,fio2 40%,peep 5. sat 98%hob elevated. rt nare ngt, clamped. iv rt upper arm mid line diprivan 15mcg/kg/min, ivf 1/2ns 100ml/h. fc patent. urine draining. dyana soft wrist restraint checked and released no injury or redness noted. turn and reposition q2h. will continue to monitor vitals.
[2017-08-01] MEDS ORDERED: DIGOXIN INJ 0.5 MG/2 ML AMPUL ONE (22:51)
[2017-08-01] MEDS: DIGOXIN INJ 0.5 MG/2 ML AMPUL IV SCH ×2 (22:55→23:00)
--- NOTE | 2017-08-01 23:03 | NUR ---
NETWORK DIAGNOSTIC SUPPORT SPECIALIST. AROUND 2100 AFIB, EKG DONE. DR GRIMM MADE AWARE. NEW ORDER RECEIVED.
[2017-08-01] MEDS ORDERED: METOPROLOL TARTRATE 50 MG TABLET ONE (23:14)
[2017-08-01] MEDS ORDERED: METOPROLOL TARTRATE 50 MG TABLET PO SCH (23:30)
[2017-08-01] MEDS ORDERED: DILTIAZEM HCL 30 MG TABLET ONE (23:52)
[2017-08-02] VITALS (54 sets, daily range): BP systolic 77–129; BP diastolic 49–81
[2017-08-02] MEDS ORDERED: ACETAMINOPHEN 650 MG/20.3 ML UDC ONE (00:51)
[2017-08-02] MEDS: PROPOFOL 10MG/ML 50ML 50 ML IV PRN ×5 (00:53→23:17)
[2017-08-02] MEDS ORDERED: ACETAMINOPHEN 650 MG/20.3 ML UDC NG ONE (01:00)
[2017-08-02] MEDS: DILTIAZEM HCL 30 MG TABLET PO SCH ×2 (01:54→02:00)
[2017-08-02] MEDS: LEVETIRACETAM (500MG) 500 MG in IV NS 0.9% 100 ML IV SCH (03:10)
[2017-08-02] MEDS: IV 1/2NS 1000 ML 1,000 ML IV PRN (03:11)
[2017-08-02] MEDS: IPRATROPIUM NEB FS 0.5 MG/2.5 ML AMPUL.NEB NEB SCH ×6 (03:14→23:20)
[2017-08-02] MEDS: ALBUTEROL HALF STRENGTH 1.25 MG/3 ML VIAL.NEB NEB SCH ×6 (03:14→23:20)
--- NOTE | 2017-08-02 04:03 | NUR ---
INSTITUTION LIBRARIAN. AM CARE. ORAL CARE, BED BATH GIVEN. LINEN CHANGED. REMAINING SAME VENT SETTING TOLERATED WELL. SAT 99%. NO ACUTE DISTRESS NOTED. HOTEL OFFICE MANAGER SHOWING A FIB CONTROLLED. DEX SOFT WRIST RESTRAINT CHECKED AND RELEASED NO INJURY OR REDNESS NOTED. RT NARG NGT INTACT. CLAMPED. NPO. FC PATENT. URINE DRAINING. HOB ELEVATED. TURN AND REPOSITION Q2H. WILL CONTINUE TO MONITOR VITALS.
--- NOTE | 2017-08-02 04:07 | NUR ---
COOK VACUUM KETTLE. 0200. STILL AFIB RATE WAS 130. PAGED DR GRIMM, NEW ORDER RECEIVED. CARDIZEM 60MG PO GIVEN,
[2017-08-02] MEDS: PHENYTOIN SUSP UDC 100 MG/4 ML UDC PO SCH ×4 (05:13→22:44)
[2017-08-02] MEDS: PIPERACILLIN /TAZOBACTAM 3.375 G in IV D5W 50 ML IV SCH ×3 (05:13→17:01)
[2017-08-02 05:57] LABS: CALCIUM, SERUM 8.6 mg/dL (8.5-10.1); CARBON DIOXIDE 25 mmol/L (21-32); CHLORIDE 113 mmol/L (98-107); CREATININE 1.1 mg/dL (0.6-1.3); GLUCOSE 95 mg/dL (74-106); SODIUM SERUM 145 mmol/L (136-145); UREA NITROGEN, BLOOD 33 mg/dL (7-18)
[2017-08-02 06:06] LABS: TROPONIN I < 0.017 ng/mL (0.00-0.056)
[2017-08-02 06:16] LABS: PHENYTOIN (DILANTIN) 13.6 ug/ml (10.0-20.0)
[2017-08-02 06:58] LABS: EOSINOPHILS % (AUTO) 0.5 % (0.0-6.0); HEMATOCRIT 26 % (39-51); HEMOGLOBIN 9.1 g/dL (13.5-17.5); LYMPHOCYTES # (AUTO) 0.7 /CMM (0.8-4.8); LYMPHOCYTES % (AUTO) 11.2 % (20.0-44.0); MEAN CORPUSCULAR HEMOGLOBIN 33 PG (26.0-33.0); MEAN CORPUSCULAR HGB CONC 35 g/dl (31.0-36.0); MEAN CORPUSCULAR VOLUME 95 fL (80-96); MONOCYTES # (AUTO) 0.4 /CMM (0.1-1.30); MONOCYTES % (AUTO) 6.1 % (2.0-12.0); NEUTROPHILS # (AUTO) 5.3 /CMM (1.8-8.9); NEUTROPHILS % (AUTO) 82.2 % (43.0-81.0); PLATELET COUNT (AUTO) 91 /CMM (150-450); RDW COEFFICIENT OF VARIATION 15.7 (11.5-15.0); RED BLOOD CELL COUNT(AUTO) 2.78 MIL/uL (4.5-6.0); WHITE BLOOD COUNT (AUTO) 6.5 K/uL (4.3-11.0)
--- NOTE | 2017-08-02 07:40 | NUR ---
BODY BUILDER: pt.is sedated with 15 mcg/kg/min Diprivan, reactive for pain stimuli, SBP 89-91 now, O2 sat. over 94%, suctioned, had rapid Afib over night, now: controlled Afib Hr 70-80, still NPO (will s/w ), is in room, updated with all above, IVF, I/O
[2017-08-02] MEDS ORDERED: PROPOFOL 10MG/ML 50ML 50 ML IV PRN (08:00)
--- NOTE | 2017-08-02 08:25 | NUR ---
RT PATIENT REC'D ORALLY INTUBATED ON [facility] VENT WITH SETTINGS TOLERATED WELL. VENT ALARMS CHECKED + AUDIBLE. CUFF PRESSURE CHECKED FUSE MAKER. SX'D WITH SMALL/MOD AMT PALE SEMITHICK SECRETIONS. B/S DIM. AMBU BAG AT [facility]. CONT CURRENT PLAN OF RESP CARE. Addendum: 08/02/17 at 0948 by YAMILETH ORELLANA RT Amended: Links added.
[2017-08-02] MEDS: LACOSAMIDE 50 MG TABLET GT SCH ×2 (08:39→21:19)
[2017-08-02] MEDS: NYSTATIN (PYXIS) 500,000 UNIT/5 ML ORAL.SUSP GT SCH ×4 (08:39→21:19)
[2017-08-02] MEDS: ZINC SULFATE 220 MG CAPSULE GT SCH (08:39)
[2017-08-02] MEDS: PANTOPRAZOLE 40 MG VIAL IV SCH (08:39)
[2017-08-02] MEDS: SENNOSIDES 8.6 MG TABLET GT SCH (08:39)
[2017-08-02] MEDS: Z GUARD REMEDY 2 OZ OINT TP SCH (08:40)
[2017-08-02] MEDS: METOPROLOL TARTRATE 50 MG TABLET PO SCH ×2 (08:40→21:19)
[2017-08-02 09:09] LABS: BAND % (MANUAL) 2 % (0.0-5.0); LYMPHOCYTES % (MANUAL) 20 % (16-48); MONOCYTES % (MANUAL) 3 % (0-11.0); NEUTROPHILS % (MANUAL) 75 (42-76)
[2017-08-02 09:39] LABS: ABG BASE EXCESS 0.4 mmol/L; ABG OXYGEN SATURATION 96.3 % (92.0-98.5); ABG PCO2 37.1 mmHg (35.0-45.0); ABG PH 7.436 (7.350-7.450); ABG PO2 94.9 mmHg (75.0-100.0); AaDO2 147.6 mmHg; COHb 0.3 % (0.5-1.5); MetHb 0.5 % (0.0-1.5); O2Hb 95.5 % (94.0-97.0); SITE, ABG Right Radial
[2017-08-02] MEDS: DEXAMETHASONE SOD PHOSPHATE 4 MG/ML VIAL IV SCH (09:50)
--- NOTE | 2017-08-02 10:30 | NUR ---
DEVELOPMENT EXPERT: pt.is reactive by name/touch, rest, no pain, RR 18-22, with Diprivan 15 mcg/kg.min, afib HR 95-115, SBP over 100, O2sat. 98-99%, is in room, updated with all above, history, orders, VS, SIMV attempt yesterday, ABG, see new orders
--- NOTE | 2017-08-02 10:45 | NUR ---
SUPERVISOR PACKING: pt.is grimacing, restless now, was suctioned, HR 115-120 afib now, increased Diprivan to 20 mcg/kg/m
--- NOTE | 2017-08-02 11:40 | NUR ---
MEAT PROCESSOR: pt. sedated well, rest, SR 65-70 now, SBP over 100, O2sat. over96%, is in room, updated with all above, VS, NPO, IVF, I/O, meds, ordered: change IVf to NS 50ml/h, start Fibersouse NGTF 30ml/h, goal 50ml/h
[2017-08-02] MEDS: IV NS 0.9% 1,000 ML IV PRN (12:23)
[2017-08-02] MEDS ORDERED: FIBERSOURCE HN 1,000 ML BOTTLE GT PRN (13:00)
--- NOTE | 2017-08-02 14:30 | NUR ---
ASSISTANT PROFESSOR OF ART: Scraper Operator evaluated pt./updated, ordered: Fibersourse NGTF goal is 65 ml
--- NOTE | 2017-08-02 18:03 | NUR ---
SECTION WEAVER: pt.is rest, sedated with 20 mcg Diprivan now, reactive by touch, still on wrists restraints/had attempts to touch ETT, O2 sat. over 96%, SR now, NGTF residual is 10ml now, SBP over 100
--- NOTE | 2017-08-02 19:57 | NUR ---
agricultural produce washer. initial assessment, received the pt rest on the bed,orally intubated, sedated with diprivan. ett 7.5cm,lip 24cm,ac 18,tv 600,fio2 40%,peep 5, sat 98%, awake overnight monitor showing nsr. iv rt upper arm mid line diprivan 20mcg/kg/min,ivf 1/2ns 100ml/h. rt nare ngt intact. fiber source 40ml/h, fc patent. dyana soft wrist restraint checked and released. no injury or redness noted. hob elevated. turn and reposition q2h. will continue to monitor vitals.
--- NOTE | 2017-08-02 20:33 | NUR ---
PT RECEIVED INTUBATED ON VENT. NO RESP DISTRESS NOTED. PT TOLERATING VENT SETTINGS. SX'D FOR SML AMT OF THICK PALE SECRETIONS. VENT ALARMS SET AND AUDIBLE. AMBU BAG AT [facility]. VENT PLUGGED INTO RED OUTLET. WILL CONTINUE TO MONITOR. Addendum: 08/02/17 at 2033 by LAURY JOSEPH RT Amended: Links added.
[2017-08-02] MEDS: LEVETIRACETAM SOL (5 ML) 100 MG/ML UDC GT SCH (21:19)
[2017-08-03] VITALS (51 sets, daily range): BP systolic 108–155; BP diastolic 48–93
[2017-08-03] MEDS: PIPERACILLIN /TAZOBACTAM 3.375 G in IV D5W 50 ML IV SCH ×5 (00:28→23:22)
[2017-08-03] MEDS: PROPOFOL 10MG/ML 50ML 50 ML IV PRN ×5 (02:47→21:24)
--- NOTE | 2017-08-03 03:31 | NUR ---
icui rn, AM CARE, ORAL CARE, BED BATH GIVEN. LINEN CHANGED. REMAININH SAME IVF NS 50ML.H FC PATENT URINE DRAININRT NARE NGT FEEDING TOLERATED WELL. ANTOINETTE 98%HOB ELEVATED. TURN AND REPOSITION Q2H. WILL CONTINUE TI MONITORCATR. THINFS , WILL CONTINUE TO PIO VITAMF
[2017-08-03] MEDS: ALBUTEROL HALF STRENGTH 1.25 MG/3 ML VIAL.NEB NEB SCH ×6 (03:50→23:22)
[2017-08-03] MEDS: IPRATROPIUM NEB FS 0.5 MG/2.5 ML AMPUL.NEB NEB SCH ×6 (03:50→23:22)
[2017-08-03] MEDS: IV NS 0.9% 1,000 ML IV PRN (05:05)
[2017-08-03] MEDS: PHENYTOIN SUSP UDC 100 MG/4 ML UDC PO SCH ×4 (05:07→23:22)
--- NOTE | 2017-08-03 07:30 | NUR ---
RT PATIENT REC'D ORALLY INTUBATED ON [facility] VENT WITH SETTINGS TOLERATED WELL. VENT ALARMS CHECKED + AUDIBLE. CUFF PRESSURE CHECKED HUMAN SERVICES ASSISTANT. SX'D WITH SMALL/MOD AMT PALE SEMITHICK SECRETIONS. B/S DIM. AMBU BAG AT [facility]. CONT CURRENT PLAN OF RESP CARE. Addendum: 08/03/17 at 0825 by YAMILETH ORELLANA RT Amended: Links added.
--- NOTE | 2017-08-03 07:30 | NUR ---
CHIEF SECURITY OFFICER: pt.is reactive by touch with Diprivan 20 mcg.kg.min, rest, on wrists restraints, no pain, SR 70, SBP over 100, had bradycardia after Metoprolol dose/will notify , O2 sat./RR WNL, NGTF residual 30ml, plan: decrease/stop sedation to see pt.neurostatus, continue advance NGTF
--- NOTE | 2017-08-03 08:00 | NUR ---
BROKER ASSOCIATE: updated with pt.current condition, VS, bradycardia episodes, I/O, meds, NGTF, IVF, confirmed ok for sedation vacation and wait block machine operator for probably wean attempt?, see new orders
[2017-08-03] MEDS: PANTOPRAZOLE 40 MG VIAL IV SCH (08:32)
[2017-08-03] MEDS: SENNOSIDES 8.6 MG TABLET GT SCH (08:32)
[2017-08-03] MEDS: ZINC SULFATE 220 MG CAPSULE GT SCH (08:32)
[2017-08-03] MEDS: LEVETIRACETAM SOL (5 ML) 100 MG/ML UDC GT SCH ×2 (08:32→20:24)
[2017-08-03] MEDS: METOPROLOL TARTRATE 50 MG TABLET PO SCH ×2 (08:32→20:25)
[2017-08-03] MEDS: NYSTATIN (PYXIS) 500,000 UNIT/5 ML ORAL.SUSP GT SCH ×4 (08:32→20:24)
[2017-08-03] MEDS: LACOSAMIDE 50 MG TABLET GT SCH ×2 (08:33→20:24)
[2017-08-03] MEDS: Z GUARD REMEDY 2 OZ OINT TP SCH (08:33)
[2017-08-03] MEDS ORDERED: DEXAMETHASONE SOD PHOSPHATE 4 MG/ML VIAL IV SCH (09:00)
--- NOTE | 2017-08-03 09:10 | NUR ---
COLOR CORRECTOR: stopped sedation, pt.is with eyes contact, can follow simple commands, but still very weak, on restraints for self extubation protection, VSS
--- NOTE | 2017-08-03 09:30 | NUR ---
DIALYSIS BIOMED TECHNICIAN: is in room, updated with all above, ordered: SIMV4, PS12, RT notified
--- NOTE | 2017-08-03 10:00 | NUR ---
ZONING TECHNICIAN: pt.is awake, eyes contact+, no any pain, very weak activity and reaction, O2 sat 95-98%, but RR 25-35, tachypneic with some chest laboring, confirmed: hard to breath, grimacing, SR, SBP up to 150, reevaluated pt., ordered: place back for AC mode, resume sedation, RT is aware
--- NOTE | 2017-08-03 10:00 | NUR ---
RT PER DR LOUIE VENT WEANING WAS ATTEMPTED. PATIENT WAS UNABLE TO TOLERATE WITH NOTED SOB AND INCREASED WOB. PER LIBAN PATIENT PLACED BACK ON AC MODE Addendum: 08/03/17 at 1148 by YAMILETH ORELLANA RT Amended: Links added.
--- NOTE | 2017-08-03 11:47 | NUR ---
SPINNERET CLEANER: requested to place him in comp.system as for primary MD, Carey VERMA is aware and will do it, pt.is sedated well now, rest, SR, O2 sat, RR WNL, turned q2h
--- NOTE | 2017-08-03 14:30 | NUR ---
IMAGING TECH: pt.daughter is in room/notify re pt.current condition, last events, sedation vacation/wean attempts, orders, meds, POC, spoke with RT
--- NOTE | 2017-08-03 17:41 | NUR ---
ASBESTOS TEXTILE SUPERVISOR: pt.is sedated with 20 mcg Diprivan, rest, reactive by touch, on wrists restraints, SR, SBP, O2 sat. WNL, was suctioned well, NGTF residual was 80ml at 16.20/will notify next nurse, legs: no edema, no pain, no redness, PM/skin/wounds care are done, no Sz activity during shift
[2017-08-03] MEDS: FIBERSOURCE HN 1,000 ML BOTTLE GT PRN (18:16)
--- NOTE | 2017-08-03 19:00 | NUR ---
RN INITIAL NOTES RECEIVED PT AWAKE ON BED, ON SEDATION OF DIPRIVAN @ 20MCG/KG/MIN, WILL INCREASE RATE PER PROTOCOL. INTUBATED AND ON VENT WITH SETTINGS AC 18, TV 600, FIO2 40%, PEEP 5, ETT 7.5/24@LIP, SATURATING WELL, NO S/S OF RESP DISTRESS. CURRENTLY SR ON THE MONITOR, HR 70-80'S. RIGHT NARE NGT ON FIBERSOURCE FEEDING @ 65MLS/HR, WITH 30MLS RESIDUALS, TOLERATING FAIRLY. WILBURN CATH INTACT. RIGHT UPPER ARM MIDLINE WITH NS @ 50MLS/HR, FLUSHED AND PATENT, NO S/S OF INFILTRATION/INFECTION, DRESSING CDI. BED LOW AND LOCKED, SIDERAILS UP, BED ALARM ON. WILL MONITOR
--- NOTE | 2017-08-03 21:12 | NUR ---
PT RECEIVED INTUBATED ON VENT. NO RESP DISTRESS NOTED. PT TOLERATING VENT SETTINGS. SX'D FOR SML AMT OF THICK PALE SECRETIONS. VENT ALARMS SET AND AUDIBLE. AMBU BAG AT [facility]. VENT PLUGGED INTO RED OUTLET. WILL CONTINUE TO MONITOR. Addendum: 08/03/17 at 2112 by LAURY JOSEPH RT Amended: Links added.
[2017-08-04] VITALS (38 sets, daily range): BP systolic 91–143; BP diastolic 47–91
[2017-08-04] MEDS: PROPOFOL 10MG/ML 50ML 50 ML IV PRN ×11 (00:48→23:06)
[2017-08-04] MEDS: IV NS 0.9% 1,000 ML IV PRN (02:36)
[2017-08-04] MEDS: IPRATROPIUM NEB FS 0.5 MG/2.5 ML AMPUL.NEB NEB SCH ×5 (03:15→20:03)
[2017-08-04] MEDS: ALBUTEROL HALF STRENGTH 1.25 MG/3 ML VIAL.NEB NEB SCH ×5 (03:15→20:03)
[2017-08-04 05:05] LABS: BASOPHILS % (AUTO) 0.1 % (0.0-2.0); EOSINOPHILS # (AUTO) 0.2 /CMM (0.0-0.7); EOSINOPHILS % (AUTO) 2.3 % (0.0-6.0); HEMATOCRIT 25 % (39-51); HEMOGLOBIN 8.3 g/dL (13.5-17.5); LYMPHOCYTES # (AUTO) 0.9 /CMM (0.8-4.8); LYMPHOCYTES % (AUTO) 8.9 % (20.0-44.0); MEAN CORPUSCULAR HEMOGLOBIN 32 PG (26.0-33.0); MEAN CORPUSCULAR HGB CONC 34 g/dl (31.0-36.0); MEAN CORPUSCULAR VOLUME 95 fL (80-96); MONOCYTES # (AUTO) 0.5 /CMM (0.1-1.30); MONOCYTES % (AUTO) 5.1 % (2.0-12.0); NEUTROPHILS # (AUTO) 8.4 /CMM (1.8-8.9); NEUTROPHILS % (AUTO) 83.6 % (43.0-81.0); PLATELET COUNT (AUTO) 134 /CMM (150-450); RED BLOOD CELL COUNT(AUTO) 2.59 MIL/uL (4.5-6.0)
[2017-08-04] MEDS: PHENYTOIN SUSP UDC 100 MG/4 ML UDC PO SCH ×4 (05:10→23:05)
[2017-08-04] MEDS: PIPERACILLIN /TAZOBACTAM 3.375 G in IV D5W 50 ML IV SCH ×4 (05:11→23:05)
[2017-08-04 05:20] LABS: CARBON DIOXIDE 30 mmol/L (21-32); CHLORIDE 115 mmol/L (98-107); CREATININE 0.7 mg/dL (0.6-1.3); GLUCOSE 114 mg/dL (74-106); POTASSIUM 3.4 mmol/L (3.5-5.1); SODIUM SERUM 150 mmol/L (136-145); UREA NITROGEN, BLOOD 18 mg/dL (7-18)
--- NOTE | 2017-08-04 06:30 | NUR ---
RN CLOSING NOTES PT REMAINS STABLE OF THE MOMENT. ALL DUE MEDS GIVEN, AM CARE PROVIDED. WILL ENDORSE LUDMILA TO AM RN
--- NOTE | 2017-08-04 07:30 | NUR ---
ICU/RN: Pt received intubated, tolerating current vent settings; sedated at 35mcg/kg/min of Diprivan. IVF infusing well, FC draining dark yellow urine to gravity. GT auscultated, flushed; positive placement tolerating feeding. Alarm sounds audible will cont to monitor
--- NOTE | 2017-08-04 08:00 | NUR ---
ICU/RN: Dr Marinelli at bedside; pt is currently on sedation vacation, alert and oriented, follows commands, denies pain and discomfort. Pt requesting to be placed back on sedation; Diprivan being titrated per protocol. Discussed abn labs and failed weaning yesterday. New orders noted and carried out.
[2017-08-04] MEDS: NYSTATIN (PYXIS) 500,000 UNIT/5 ML ORAL.SUSP GT SCH ×4 (08:11→20:23)
[2017-08-04] MEDS: METOPROLOL TARTRATE 50 MG TABLET PO SCH (08:11)
[2017-08-04] MEDS: SENNOSIDES 8.6 MG TABLET GT SCH (08:11)
[2017-08-04] MEDS: ZINC SULFATE 220 MG CAPSULE GT SCH (08:11)
[2017-08-04] MEDS: LEVETIRACETAM SOL (5 ML) 100 MG/ML UDC GT SCH ×2 (08:11→20:23)
[2017-08-04] MEDS: PANTOPRAZOLE 40 MG VIAL IV SCH (08:11)
[2017-08-04] MEDS: LACOSAMIDE 50 MG TABLET GT SCH ×2 (08:11→20:24)
[2017-08-04] MEDS: Z GUARD REMEDY 2 OZ OINT TP SCH (08:12)
--- NOTE | 2017-08-04 08:15 | NUR ---
RT PATIENT REC'D ORALLY INTUBATED ON [facility] VENT WITH SETTINGS TOLERATED WELL. VENT ALARMS CHECKED + AUDIBLE. 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 SX'D WITH SMALL/MOD AMT PALE SEMITHICK SECRETIONS. B/S DIM. AMBU BAG AT [facility]. CONT CURRENT PLAN OF RESP CARE. PER ELISEO NO ABG NEEDED TODAY. NO VENT CHANGES TO BE DONE Addendum: 08/04/17 at 1638 by YAMILETH ORELLANA RT Amended: Links added.
--- NOTE | 2017-08-04 09:30 | NUR ---
ICU/RN: Dr Baltazar parks; updated on pt status. Informed of pt failed weaning trial yesterday. No new orders.
[2017-08-04] MEDS ORDERED: FEE PK DOSING 1 MIN EA MC ONE (13:40)
[2017-08-04] MEDS: VANCOMYCIN 1 GM in IV D5W 250 ML IV SCH (14:09)
--- NOTE | 2017-08-04 15:00 | NUR ---
ICU/RN: Bed bath, wound care rendered. Noted with soft, green stool. Pt tolerated well, denies pain and discomfort. Bilat heels offloaded.
[2017-08-04] MEDS: FIBERSOURCE HN 1,000 ML BOTTLE GT PRN (15:43)
--- NOTE | 2017-08-04 18:00 | NUR ---
ICU/RN: Pt lightly sedated on 40mcg/kg/min of Diprivan. Shakes head when asked if in pain or uncomfortable.
--- NOTE | 2017-08-04 19:00 | NUR ---
RN INITIAL NOTES RECEIVED PATIENT ON BED SEDATED WITH DIPRIVAN @ 40MCG/KG/MIN, AROUSABLE TO TOUCH. INTUBATED AND ON VENT WITH SETTINGS AC 18, TV 600, FIO2 40%, PEEP 5, ETT 7.5/24@LIP, SATURATING WELL, NO S/S OF RESP DISTRESS. CURRENTLY SR ON THE MONITOR, HR 70'S. RIGHT NARE NGT ON FIBERSOURCE FEEDING @ 65MLS/HR, WITH NO RESIDUALS, TOLERATING WELL. WILBURN CATH INTACT. RIGHT UPPER ARM MIDLINE WITH 1/2NS+20MEQKCL @ 50MLS/HR, FLUSHED AND PATENT, NO S/S OF INFILTRATION/INFECTION, DRESSING CDI. BED LOW AND LOCKED, SIDERAILS UP, BED ALARM ON. WILL MONITOR
--- NOTE | 2017-08-04 19:07 | NUR ---
ICU/RN: Pt comfortable in bed, no distress noted. Sedated on Diprivan per protocol. Care endorsed to PM RN for LUDMILA.
--- NOTE | 2017-08-04 20:05 | NUR ---
PT RECEIVED ON VENT VIA CHARTED SETTINGS AND ROUTE. TOLERATING VENT SETTINGS. AMBU BAG AT BEDSIDE, ALARMS SET AND AUDIBLE. VENT PLUGGED INTO RED OUTLET. NO RESP DISTRESS NOTED. WILL CONTINUE TO MONITOR Addendum: 08/04/17 at 2007 by IVETTE GAGE RT Amended: Links added.
[2017-08-05] VITALS (45 sets, daily range): BP systolic 118–146; BP diastolic 56–70
[2017-08-05] MEDS: ALBUTEROL HALF STRENGTH 1.25 MG/3 ML VIAL.NEB NEB SCH ×7 (00:09→23:03)
[2017-08-05] MEDS: IPRATROPIUM NEB FS 0.5 MG/2.5 ML AMPUL.NEB NEB SCH ×7 (00:09→23:03)
[2017-08-05] MEDS: VANCOMYCIN 1 GM in IV D5W 250 ML IV SCH ×2 (01:48→15:26)
[2017-08-05] MEDS: PROPOFOL 10MG/ML 50ML 50 ML IV PRN ×10 (01:48→23:36)
[2017-08-05] MEDS: PHENYTOIN SUSP UDC 100 MG/4 ML UDC PO SCH ×4 (05:06→23:35)
[2017-08-05] MEDS: PIPERACILLIN /TAZOBACTAM 3.375 G in IV D5W 50 ML IV SCH ×5 (05:07→23:35)
[2017-08-05 05:46] LABS: EOSINOPHILS # (AUTO) 0.4 /CMM (0.0-0.7); EOSINOPHILS % (AUTO) 2.9 % (0.0-6.0); HEMATOCRIT 25 % (39-51); HEMOGLOBIN 8.4 g/dL (13.5-17.5); LYMPHOCYTES # (AUTO) 0.9 /CMM (0.8-4.8); LYMPHOCYTES % (AUTO) 6.6 % (20.0-44.0); MEAN CORPUSCULAR HEMOGLOBIN 33 PG (26.0-33.0); MEAN CORPUSCULAR HGB CONC 34 g/dl (31.0-36.0); MEAN CORPUSCULAR VOLUME 95 fL (80-96); MONOCYTES # (AUTO) 0.6 /CMM (0.1-1.30); MONOCYTES % (AUTO) 4.4 % (2.0-12.0); NEUTROPHILS % (AUTO) 86.1 % (43.0-81.0); PLATELET COUNT (AUTO) 167 /CMM (150-450); RDW COEFFICIENT OF VARIATION 15.6 (11.5-15.0); RED BLOOD CELL COUNT(AUTO) 2.58 MIL/uL (4.5-6.0); WHITE BLOOD COUNT (AUTO) 13.9 K/uL (4.3-11.0)
[2017-08-05 06:09] LABS: CALCIUM, SERUM 7.8 mg/dL (8.5-10.1); CARBON DIOXIDE 29 mmol/L (21-32); CHLORIDE 110 mmol/L (98-107); CREATININE 0.7 mg/dL (0.6-1.3); GLUCOSE 164 mg/dL (74-106); POTASSIUM 3.6 mmol/L (3.5-5.1); SODIUM SERUM 145 mmol/L (136-145); UREA NITROGEN, BLOOD 13 mg/dL (7-18)
--- NOTE | 2017-08-05 06:30 | NUR ---
RN CLOSING NOTES PT REMAINS STABLE OF THE MOMENT. ALL DUE MEDS GIVEN, AM CARE PROVIDED. WILL ENDORSE LUDMILA TO AM RN
--- NOTE | 2017-08-05 07:40 | NUR ---
ICU/RN PT IS INTUBATED,ON THE VENT AC MODE.FIO2-40%.SAT O2-100%.SEDATED ON DIPRIVAN AT 40 MCG.V/S STABLE ,AFEBRILE.NO PAIN REPORTED AT THIS TIME.IV - INFUSING ORDERED.RIGHT UPPER ARM MIDLINE.RIGHT NG TUBE INFUSING WITH FIBERSOURCE AT 65 ML/HR NO RESIDUAL NOTED.F/C DRAINING WITH JAVON URINE.SUCTION PROVIDED.REPOSITION FOR COMFORT.
--- NOTE | 2017-08-05 07:41 | NUR ---
PT RECEIVED ORALLY INTUBATED ON MECHANICAL VENT W/ SETTINGS PER MD. VENT IN RED OUTLET, AMBUBAG AT BEDSIDE, VENT ALARMS CHECKED AND AUDIBLE. PT SXED AND LAVAGED PRN, HME CHANGED PRN. HHN MEDS GIVEN INLINE PER MD ORDER. BREATH SOUNDS EQUAL, DIMINISHED. ETT CLEAN/DRY AND SECURED W/ ANCHOFAST. PLAN IS TO CONTINUE CARE UNDER CURRENT MD ORDERS AND MONITOR FOR CHANGES. Addendum: 08/05/17 at 1511 by ARI TRAORE RT Amended: Links added.
[2017-08-05] MEDS: NYSTATIN (PYXIS) 500,000 UNIT/5 ML ORAL.SUSP GT SCH ×4 (08:31→20:23)
[2017-08-05] MEDS: SENNOSIDES 8.6 MG TABLET GT SCH (08:31)
[2017-08-05] MEDS: PANTOPRAZOLE 40 MG VIAL IV SCH (08:31)
[2017-08-05] MEDS: LEVETIRACETAM SOL (5 ML) 100 MG/ML UDC GT SCH ×2 (08:31→20:23)
[2017-08-05] MEDS: LACOSAMIDE 50 MG TABLET GT SCH ×2 (08:31→20:23)
[2017-08-05] MEDS: Z GUARD REMEDY 2 OZ OINT TP SCH (08:32)
[2017-08-05] MEDS: ZINC SULFATE 220 MG CAPSULE GT SCH (08:33)
--- NOTE | 2017-08-05 09:35 | NUR ---
ICU/RN DUE MEDS ARE GIVEN ORDERED.SEDATION VACATION PROVIDED.PT IS AWAKE,ALERT.IS NOT STABLE TO BE WEAN TODAY.MD NOTIFIED.WILL TRY TOMORROW.CONTINUE MONITORING.
[2017-08-05] MEDS ORDERED: MORPHINE SULFATE INJ 4 MG/ML DISP.SYRIN IV PRN (10:30)
[2017-08-05] MEDS: FIBERSOURCE HN 1,000 ML BOTTLE GT PRN (10:44)
--- NOTE | 2017-08-05 18:00 | NUR ---
ICU/RN PM CARE PROVIDED.DUE MEDS ARE GIVEN ORDERED.PT IS ON DIPRIVAN.F/C DRAINED WITH 900 ML OF URINE TOTAL. YELLOW SOFT 3 BM. SUCTION PROVIDED,DUE MEDS ARE GIVEN ORDERED.REPOSITION FOR COMFORT.
--- NOTE | 2017-08-05 19:00 | NUR ---
RN INITIAL NOTES RECEIVED PATIENT ON BED SEDATED WITH DIPRIVAN @ 40MCG/KG/MIN, AROUSABLE TO TOUCH. INTUBATED AND ON VENT WITH SETTINGS AC 18, TV 600, FIO2 40%, PEEP 5, ETT 7.5/24@LIP, SATURATING WELL, NO S/S OF RESP DISTRESS. CURRENTLY SR ON THE MONITOR, HR 80'S. RIGHT NARE NGT ON FIBERSOURCE FEEDING @ 65MLS/HR, WITH NO RESIDUALS, TOLERATING WELL. WILBURN CATH INTACT. RIGHT UPPER ARM MIDLINE WITH 1/2NS+20MEQKCL @ 50MLS/HR, FLUSHED AND PATENT, NO S/S OF INFILTRATION/INFECTION, DRESSING CDI. BED LOW AND LOCKED, SIDERAILS UP, BED ALARM ON. WILL MONITOR
--- NOTE | 2017-08-05 19:57 | NUR ---
PT RECEIVED INTUBATED 7.5 SECURED AT 24CM AT THE LIP ON VENT. NO RESP DISTRESS NOTED. BREATH SOUND CLR/DM PT TOLERATING VENT SETTINGS. SX'D FOR MOD AMT OF THICK PALE SECRETIONS. VENT ALARMS SET AND AUDIBLE. AMBU BAG AT [facility]. VENT PLUGGED INTO RED OUTLET. WILL CONTINUE TO MONITOR. Addendum: 08/05/17 at 8 by LAURY JOSEPH RT Amended: Links added.
[2017-08-06] VITALS (30 sets, daily range): BP systolic 98–155; BP diastolic 42–80
[2017-08-06] MEDS: PROPOFOL 10MG/ML 50ML 50 ML IV PRN ×4 (00:54→08:43)
[2017-08-06] MEDS: VANCOMYCIN 1 GM in IV D5W 250 ML IV SCH (01:49)
[2017-08-06] MEDS: ALBUTEROL HALF STRENGTH 1.25 MG/3 ML VIAL.NEB NEB SCH ×3 (03:19→11:16)
[2017-08-06] MEDS: IPRATROPIUM NEB FS 0.5 MG/2.5 ML AMPUL.NEB NEB SCH ×3 (03:30→11:16)
[2017-08-06] MEDS: FIBERSOURCE HN 1,000 ML BOTTLE GT PRN (04:55)
[2017-08-06] MEDS: PHENYTOIN SUSP UDC 100 MG/4 ML UDC PO SCH ×2 (05:09→12:09)
[2017-08-06] MEDS: PIPERACILLIN /TAZOBACTAM 3.375 G in IV D5W 50 ML IV SCH ×2 (05:09→12:08)
[2017-08-06 05:17] LABS: BASOPHILS % (AUTO) 0.1 % (0.0-2.0); EOSINOPHILS # (AUTO) 0.3 /CMM (0.0-0.7); EOSINOPHILS % (AUTO) 1.9 % (0.0-6.0); HEMATOCRIT 24 % (39-51); LYMPHOCYTES # (AUTO) 0.9 /CMM (0.8-4.8); LYMPHOCYTES % (AUTO) 5.4 % (20.0-44.0); MEAN CORPUSCULAR HEMOGLOBIN 32 PG (26.0-33.0); MEAN CORPUSCULAR HGB CONC 34 g/dl (31.0-36.0); MEAN CORPUSCULAR VOLUME 95 fL (80-96); MONOCYTES # (AUTO) 0.8 /CMM (0.1-1.30); MONOCYTES % (AUTO) 4.5 % (2.0-12.0); NEUTROPHILS # (AUTO) 15.1 /CMM (1.8-8.9); NEUTROPHILS % (AUTO) 88.1 % (43.0-81.0); PLATELET COUNT (AUTO) 201 /CMM (150-450); RDW COEFFICIENT OF VARIATION 15.5 (11.5-15.0); RED BLOOD CELL COUNT(AUTO) 2.49 MIL/uL (4.5-6.0); WHITE BLOOD COUNT (AUTO) 17.2 K/uL (4.3-11.0)
[2017-08-06 05:42] LABS: CALCIUM, SERUM 7.8 mg/dL (8.5-10.1); CARBON DIOXIDE 31 mmol/L (21-32); CHLORIDE 109 mmol/L (98-107); CREATININE 0.7 mg/dL (0.6-1.3); GLUCOSE 154 mg/dL (74-106); POTASSIUM 3.7 mmol/L (3.5-5.1); SODIUM SERUM 144 mmol/L (136-145); UREA NITROGEN, BLOOD 12 mg/dL (7-18)
--- NOTE | 2017-08-06 06:30 | NUR ---
RN CLOSING NOTES PT REMAINS STABLE OF THE MOMENT. ALL DUE MEDS GIVEN, AM CARE PROVIDED. WILL ENDORSE LUDMILA TO AM RN
--- NOTE | 2017-08-06 07:30 | NUR ---
ORALLY INTUBATED TO VENT-ON DIPRIVAN DRIP 40 MCG/KG/MIN FOR SEDATION. EASILY AROUSABLE TO NAME BY EYE OPENING. SR ON MONITOR. SBP>100. NGT FEEDING TOLERATING WELL WITHOUT SIGNIFICANT RESIDUALS.
--- NOTE | 2017-08-06 07:52 | NUR ---
RT PATIENT REC'D ORALLY INTUBATED ON [facility] VENT WITH SETTINGS TOLERATED WELL. VENT ALARMS CHECKED + AUDIBLE. CUFF PRESSURE CHECKED HEALTH AND WELLNESS DIRECTOR. SX'D WITH SMALL/MOD AMT PALE SEMITHICK SECRETIONS. B/S DIM. AMBU BAG AT H[facility]. CONT CURRENT PLAN OF RESP CARE. Addendum: 08/06/17 at 1353 by YAMILETH ORELLANA RT Amended: Links added.
--- NOTE | 2017-08-06 08:00 | NUR ---
DR. GRIMM TO SEE PATIENT. PATIENT POSSIBLE TRANSFER TO [facility] TODAY. CASE MANGER AWARE PER .
[2017-08-06] MEDS: ZINC SULFATE 220 MG CAPSULE GT SCH (08:25)
[2017-08-06] MEDS: PANTOPRAZOLE 40 MG VIAL IV SCH (08:25)
[2017-08-06] MEDS: NYSTATIN (PYXIS) 500,000 UNIT/5 ML ORAL.SUSP GT SCH (08:25)
[2017-08-06] MEDS: SENNOSIDES 8.6 MG TABLET GT SCH (08:25)
[2017-08-06] MEDS: LEVETIRACETAM SOL (5 ML) 100 MG/ML UDC GT SCH (08:25)
[2017-08-06] MEDS: Z GUARD REMEDY 2 OZ OINT TP SCH (08:26)
[2017-08-06] MEDS: LACOSAMIDE 50 MG TABLET GT SCH (08:43)
--- NOTE | 2017-08-06 09:30 | NUR ---
SKIN PHOTOS TAKEN PRIOR TRANSFER. LEFT BUTTOCK/HIP HEALED. NO DISCOLORATIONS NOTED. SACRAL REMAINS TO APPEAR DTI. PURPLISH WITH NO SKIN OPENING.
--- NOTE | 2017-08-06 09:50 | NUR ---
PATIENT SEEN BY DR. GOMES-WILL ATTEMPT VENT WEANING THIS AM-TO SIMV 4. PS 12, PEEP 5 . VENT CHANGES MADE BY RT.
--- NOTE | 2017-08-06 10:00 | NUR ---
DIPRIVAN OFF FOE VENT WEANING. PATIENT AWAKE, FOLLOWS SIMPLE COMMANDS.
--- NOTE | 2017-08-06 11:00 | NUR ---
[facility] ARRANGED PATIENT TRANSFER TO [facility]. FOR SCIENTIFIC WRITER AT 11:30 WITH CRITICAL TRANSPORT. PATIENT PLACED BACK ON FULL VENT SUPPORT. DIPRIVAN RESTARTED AT 40 MCG/KG/MIN.
--- NOTE | 2017-08-06 12:00 | NUR ---
REPORT GIVEN TO [facility] ON [facility].
--- NOTE | 2017-08-06 12:00 | NUR ---
PATIENT D/C'D AND TRANSFERRED TO ANOTHER HOSPITAL Addendum: 08/06/17 at 1353 by YAMILETH ORELLANA RT Amended: Links added.
--- NOTE | 2017-08-06 12:25 | NUR ---
PATIENT TO [facility] VIA CRITICAL CARE TRANSPORT. PATIENT DAUGHTER DOMINUGEZ MADE AWARE OF TRANSFER.
== END 2017-08-06 13:00 | disposition short-term general hospital (02) | DRG 166 ==
LOC: ER 11:44 → ICU 13:42
PROVIDERS: ADMIT Internal Medicine; ATTEND Internal Medicine
PROC: 0BH17EZ Insertion of Endotracheal Airway into Trachea, Via Natural or Artificial Opening (ICD-10-PCS; principal; 2017-07-29)
PROC: 5A1955Z Respiratory Ventilation, Greater than 96 Consecutive Hours (ICD-10-PCS; 2017-07-29)
PROC: 05H533Z Insertion of Infusion Device into Right Subclavian Vein, Percutaneous Approach (ICD-10-PCS; 2017-07-30)
PROC: 06H03DZ Insertion of Intraluminal Device into Inferior Vena Cava, Percutaneous Approach (ICD-10-PCS; 2017-07-31)
DX: J96.02 Acute respiratory failure with hypercapnia (principal); J69.0 Pneumonitis due to inhalation of food and vomit; G92 Toxic encephalopathy; N17.9 Acute kidney failure, unspecified; E87.0 Hyperosmolality and hypernatremia; I82.411 Acute embolism and thrombosis of right femoral vein; C71.9 Malignant neoplasm of brain, unspecified; E11.9 Type 2 diabetes mellitus without complications; D63.8 Anemia in other chronic diseases classified elsewhere; N13.8 Other obstructive and reflux uropathy; E78.5 Hyperlipidemia, unspecified; G40.909 Epilepsy, unspecified, not intractable, without status epilepticus; Z86.718 Personal history of other venous thrombosis and embolism; Z92.3 Personal history of irradiation; Z92.21 Personal history of antineoplastic chemotherapy; I10 Essential (primary) hypertension; Z79.4 Long term (current) use of insulin; I48.0 Paroxysmal atrial fibrillation; E87.6 Hypokalemia
CPT/HCPCS: 31720; 36415; 36569; 36600; 70450-TC; 71045-TC; 74018; 76770-TC; 80048-TC; 80053-TC; 80076-TC; 80185-TC; 81000-TC; 82550-TC; 82803-TC; 82962-TC; 83605-TC; 83735-TC; 84100-TC; 84484-TC; 85025-TC; 85610-TC; 85730-TC; 86850-TC; 87040-TC; 87070-TC; 87081-TC; 87086-TC; 93970-TC; 94002-TC; 94003-TC; 94640-TC; 94762-TC; 94799-TC; 99082-TC; A4216; A4606; A6402; C1769; C1880; C9113; J0330; J0360; J0610; J1100; J1160; J1165; J1644; J1940; J1953; J2060; J2250; J2543; J2704; J3010; J3370; J3480; J3490; J7030; J7040; J7050; J7060; Q9967; Z7610